=== PATIENT | female | born 1995 | race African-American/Black ===

== ENCOUNTER 2017-01-19 22:22 | Emergency (ER) | payer SELFPAY ==
[~2017-01-19] VITALS: Ht 165.1 cm; Wt 49.0 kg
[2017-01-19 22:26] VITALS: BP 102/63
== END 2017-01-20 04:14 | disposition left against medical advice (07) ==
LOC: ER 22:22
DX: N94.89 Other specified conditions associated with female genital organs and menstrual cycle (principal); Z53.21 Procedure and treatment not carried out due to patient leaving prior to being seen by health care provider